=== PATIENT | female | born 1935 | race Caucasian/White ===

== ENCOUNTER 2017-08-25 15:00 | Inpatient (IN) | payer MEDICARE ==
[~2017-08-25] VITALS: Ht 160 cm; Wt 56.0 kg
[~2017-08-25 15:00] MED LIST: AMLO5TAB16 PO; CARV-50 PO; CLON0.5T4 PO; FLUO40CA10 PO; FURO-150 PO; OLAN2.5T28 PO; OLAN5TAB26 PO; PANT40TA4 PO
[2017-08-25] MEDS ORDERED: ipratropium/albuterol 3ml nebule NEB ONE (15:25)
[2017-08-25 15:53] LABS: BASOPHILS % (AUTO) 0.2 % (0-1); EOSINOPHILS # (AUTO) 0.1 X10'3 (0-0.9); EOSINOPHILS % (AUTO) 1.6 % (0-6); HEMATOCRIT 34.4 % (35.0-45.0); HEMOGLOBIN 11.4 g/dl (12.0-16.0); LYMPHOCYTES # (AUTO) 1.3 X10'3 (1.1-4.8); LYMPHOCYTES % (AUTO) 16.2 % (21-51); MEAN CORPUSCULAR HEMOGLOBIN 24.3 PG (27.0-31.0); MEAN CORPUSCULAR HGB CONC 33.2 % (33.0-36.5); MEAN CORPUSCULAR VOLUME 73.3 FL (78-98); MEAN PLATELET VOLUME 7.3 FL (7.4-10.4); MONOCYTES # (AUTO) 0.4 X10'3 (0-0.9); NEUTROPHILS # (AUTO) 6.1 X10'3 (1.8-7.7); PLATELET COUNT 230 X10'3 (140-440); RED BLOOD COUNT 4.69 X10'6 (4.20-5.60); RED CELL DISTRIBUTION WIDTH 17.2 % (11.5-14.5); WHITE BLOOD COUNT 7.9 X10'3 (4.5-11.0)
[2017-08-25 16:20] LABS: ALANINE AMINOTRANSFERASE 14 U/L (12-78); ALBUMIN 3.6 G/DL (3.4-5.0); ALBUMIN/GLOBULIN RATIO 0.9 (1.1-1.5); ALKALINE PHOSPHATASE 86 IU/L (46-116); ANION GAP 10 (8-16); ASPARTATE AMINO TRANSFERASE 18 U/L (10-37); BILIRUBIN,TOTAL 0.4 MG/DL (0.1-1.0); BLOOD UREA NITROGEN 24 MG/DL (7-18); CALCIUM 9.5 MG/DL (8.5-10.1); CHLORIDE 106 MMOL/L (99-107); GLUCOSE 127 MG/DL (70-104); POTASSIUM 3.3 MMOL/L (3.5-5.1); SODIUM 145 MMOL/L (135-145); TOTAL PROTEIN 7.7 G/DL (6.4-8.2); eGFR 53 ML/MIN
[2017-08-25] MEDS ORDERED: potassium Cl 20 mEq SR tablet PO STA (17:12)
[2017-08-25] MEDS ORDERED: AMLO5TAB PO (17:20)
[2017-08-25] MEDS ORDERED: AZIT-55 PO (17:20)
[2017-08-25] MEDS ORDERED: FURO-150 PO (17:20)
[2017-08-25] MEDS ORDERED: ALBU8HFA PO (17:20)
[2017-08-25] MEDS ORDERED: CLON0.5T23 PO (17:20)
[2017-08-25] MEDS ORDERED: CARV-49 PO (17:20)
[2017-08-25] MEDS ORDERED: OLAN2.5T28 PO (17:20)
[2017-08-25] MEDS ORDERED: GUAI600T45 PO (17:20)
[2017-08-25] MEDS ORDERED: FLUO20CA39 PO (17:20)
[2017-08-25] MEDS ORDERED: temazepam 15mg capsule PO PRN (21:00)
[2017-08-25] MEDS ORDERED: non-formulary drug (Clonazepam 1 TAB) PO PRN (21:10)
[2017-08-25] MEDS ORDERED: guaiFENesin ER 600mg tablet PO PRN (21:10)
[2017-08-25] MEDS ORDERED: HYDROmorphone 1 mg/ml syringe IV PRN ×2 (21:15)
[2017-08-25] MEDS ORDERED: bisacodyl 10mg suppository rectal RC PRN (21:15)
[2017-08-25] MEDS ORDERED: acetaminophen 650mg rectal suppository RC PRN (21:15)
[2017-08-25] MEDS ORDERED: ondansetron/PF 4mg/2ml inj IV PRN (21:15)
[2017-08-25] MEDS ORDERED: magnesium hydroxide 30ml (MOM) UD suspension PO PRN (21:15)
[2017-08-25] MEDS ORDERED: diphenhydrAMINE 25mg capsule PO PRN (21:15)
[2017-08-25] MEDS ORDERED: potassium Cl 20 mEq SR tablet PO PRN ×2 (21:15)
[2017-08-25] MEDS ORDERED: HYDROcodone/acetaminophen 10/325mg tab PO PRN (21:15)
[2017-08-25] MEDS ORDERED: mag hydrox/Alum hydrox/simeth 30ml oral suspension PO PRN (21:15)
[2017-08-25] MEDS ORDERED: acetaminophen 325mg tablet PO PRN ×2 (21:15)
[2017-08-25] MEDS ORDERED: morphine 2 MG/ML inj. syringe IV PRN ×2 (21:15)
[2017-08-25] MEDS ORDERED: HYDROcodone/acetaminophen 5mg/325mg tablet PO PRN (21:15)
[2017-08-25] MEDS ORDERED: potassium Cl 40MEQ/NS 500ml 500 ML IV PRN ×2 (21:15)
[2017-08-25] MEDS ORDERED: diphenhydrAMINE 50 mg/ml inj IV PRN (21:15)
[2017-08-25 22:04] LABS: HEMOGLOBIN A1C 6.1 % (4.5-6.2)
[2017-08-25 22:14] LABS: LIPASE 123 U/L (73-393); MAGNESIUM 1.6 MG/DL (1.5-2.4); PHOSPHORUS 3.4 MG/DL (2.3-4.5)
[2017-08-25] MEDS: azithromycin 250mg tablet PO SCH (22:42)
[2017-08-25] MEDS: normal saline 1000ml 1,000 ML IV SCH (22:42)
[2017-08-25] MEDS: heparin, porcine 5000 units/ml vial SQ SCH (23:11)
[2017-08-25 23:30] VITALS: BP 183/75
[2017-08-26 04:04] LABS: BASOPHILS # (AUTO) 0.1 X10'3 (0-0.2); BASOPHILS % (AUTO) 1.1 % (0-1); EOSINOPHILS % (AUTO) 0.8 % (0-6); HEMATOCRIT 30.6 % (35.0-45.0); HEMOGLOBIN 10.2 g/dl (12.0-16.0); LYMPHOCYTES # (AUTO) 2.9 X10'3 (1.1-4.8); LYMPHOCYTES % (AUTO) 46.6 % (21-51); MEAN CORPUSCULAR HEMOGLOBIN 24.6 PG (27.0-31.0); MEAN CORPUSCULAR HGB CONC 33.4 % (33.0-36.5); MEAN CORPUSCULAR VOLUME 73.6 FL (78-98); MEAN PLATELET VOLUME 8.1 FL (7.4-10.4); MONOCYTES # (AUTO) 0.5 X10'3 (0-0.9); MONOCYTES % (AUTO) 8.2 % (2-12); NEUTROPHILS # (AUTO) 2.7 X10'3 (1.8-7.7); NEUTROPHILS % (AUTO) 43.3 % (42-75); PLATELET COUNT 196 X10'3 (140-440); RED BLOOD COUNT 4.16 X10'6 (4.20-5.60); WHITE BLOOD COUNT 6.2 X10'3 (4.5-11.0)
[2017-08-26 04:07] LABS: ALANINE AMINOTRANSFERASE 6 U/L (12-78); ALBUMIN 3.2 G/DL (3.4-5.0); ALBUMIN/GLOBULIN RATIO 0.9 (1.1-1.5); ALKALINE PHOSPHATASE 76 IU/L (46-116); ANION GAP 4 (8-16); ASPARTATE AMINO TRANSFERASE 16 U/L (10-37); BILIRUBIN,TOTAL 0.4 MG/DL (0.1-1.0); BLOOD UREA NITROGEN 25 MG/DL (7-18); BUN/CREATININE RATIO 31.3 (6.6-38.0); CALCIUM 8.7 MG/DL (8.5-10.1); CHLORIDE 108 MMOL/L (99-107); GLUCOSE 98 MG/DL (70-104); POTASSIUM 3.8 MMOL/L (3.5-5.1); SODIUM 142 MMOL/L (135-145); TOTAL CARBON DIOXIDE 29.7 MMOL/L (24-32); TOTAL PROTEIN 6.9 G/DL (6.4-8.2); eGFR 69 ML/MIN
[2017-08-26] MEDS: K and/or MAG REPLACEMENT MC SCH (08:00)
[2017-08-26] MEDS ORDERED: amLODIPine 5mg tablet PO SCH (08:00)
[2017-08-26] MEDS ORDERED: OLANZapine 2.5MG tablet PO SCH (08:00)
[2017-08-26] MEDS ORDERED: carVEDilol 12.5mg tablet PO SCH (08:00)
[2017-08-26] MEDS: amLODIPine 5mg tablet PO SCH (08:00)
[2017-08-26] MEDS ORDERED: non-formulary drug (Fluoxetine HCl (Prozac) 1 CAP) PO SCH (08:00)
[2017-08-26] MEDS: CefTRIAXone/D5W-Rocephin 1gm 50 ML IV SCH (09:04)
[2017-08-26] MEDS: docusate sod 100mg capsule PO SCH ×2 (09:04→20:17)
[2017-08-26] MEDS: clonazePAM 0.5mg tablet PO SCH ×3 (09:04→20:17)
[2017-08-26] MEDS: carvedilol 6.25mg tablet PO SCH ×2 (09:04→20:17)
[2017-08-26] MEDS: FLUoxetine 20mg capsule PO SCH (09:05)
[2017-08-26] MEDS: pantoprazole 40mg Tablet.DR PO SCH (09:05)
[2017-08-26] MEDS: aspirin 81mg tab.chew PO SCH (09:06)
[2017-08-26] MEDS: OLANZapine 2.5MG tablet PO SCH ×2 (09:06→20:17)
[2017-08-26] MEDS: azithromycin 250mg tablet PO SCH (09:06)
[2017-08-26 09:21] VITALS: BP 152/82
[2017-08-26] MEDS: heparin, porcine 5000 units/ml vial SQ SCH ×2 (09:21→15:39)
[2017-08-26 11:45] LABS: CLARITY,URINE Turbid (Clear); COLOR,URINE Yellow (Yellow); GLUCOSE, URINE Negative (Neg); KETONES,URINE Trace mg/dl (Neg); LEUKOCYTE ESTERASE ,URINE Negative (Neg); NITRITES, URINE Negative (Neg); OCCULT BLOOD,URINE Negative (Neg); PROTEIN,URINE Negative (Neg)
[2017-08-26 11:48] LABS: UA COLLECTION TYPE NON-SPECIFIED
[2017-08-26 12:17] LABS: AMORPHOUS PHOSPHATES 4+
[2017-08-26 12:22] LABS: MUCUS STRANDS MODERATE /LPF (Neg); SQUAMOUS EPITHELIAL CELL,UR MODERATE /LPF (FEW)
[2017-08-26 12:24] LABS: BACTERIA,URINE FEW /HPF (Neg); RBC,URINE 0-2 /HPF (0-2); WBC,URINE 0-4 /HPF (0-4)
[2017-08-26 12:45] VITALS: BP 104/53
[2017-08-26] MEDS ORDERED: metoprolol tartrate 1mg/ml inj IV PRN (15:55)
[2017-08-26] MEDS ORDERED: regadenoson 0.4mg/5ml syringe IV PRN (15:55)
[2017-08-26] MEDS ORDERED: aminophylline 250mg/10ml inj. IV PRN (15:55)
[2017-08-26] MEDS ORDERED: nitroGLYCERIN 0.4mg SUBLingual tab SL PRN (15:55)
[2017-08-26] MEDS ORDERED: morphine 5 MG/ML injection IV PRN ×2 (16:59)
[2017-08-26 20:00] VITALS: BP 117/66
[2017-08-26] MEDS ORDERED: non-formulary drug (Olanzapine 1 TAB) PO SCH (21:00)
[2017-08-27] VITALS: BP 105/51
[2017-08-27] MEDS ORDERED: methylPREDNISolone sod succ 125mg/2ml vial IV ONE ×2 (00:35)
[2017-08-27] MEDS: heparin, porcine 5000 units/ml vial SQ SCH ×3 (01:17→16:14)
[2017-08-27] MEDS: ipratropium/albuterol 3ml nebule NEB SCH ×2 (02:15→07:00)
[2017-08-27 06:19] LABS: BASOPHILS % (AUTO) 0.2 % (0-1); EOSINOPHILS # (AUTO) 0.1 X10'3 (0-0.9); EOSINOPHILS % (AUTO) 1.3 % (0-6); HEMATOCRIT 29.1 % (35.0-45.0); HEMOGLOBIN 9.8 g/dl (12.0-16.0); LYMPHOCYTES # (AUTO) 1.1 X10'3 (1.1-4.8); MEAN CORPUSCULAR HEMOGLOBIN 24.6 PG (27.0-31.0); MEAN CORPUSCULAR HGB CONC 33.8 % (33.0-36.5); MEAN CORPUSCULAR VOLUME 72.8 FL (78-98); MEAN PLATELET VOLUME 7.6 FL (7.4-10.4); MONOCYTES # (AUTO) 0.1 X10'3 (0-0.9); MONOCYTES % (AUTO) 2.8 % (2-12); NEUTROPHILS # (AUTO) 2.5 X10'3 (1.8-7.7); NEUTROPHILS % (AUTO) 65.7 % (42-75); PLATELET COUNT 189 X10'3 (140-440); RED CELL DISTRIBUTION WIDTH 17.7 % (11.5-14.5); WHITE BLOOD COUNT 3.8 X10'3 (4.5-11.0)
[2017-08-27 06:53] LABS: ALANINE AMINOTRANSFERASE 16 U/L (12-78); ALBUMIN/GLOBULIN RATIO 0.8 (1.1-1.5); ALKALINE PHOSPHATASE 69 IU/L (46-116); ANION GAP 6 (8-16); ASPARTATE AMINO TRANSFERASE 16 U/L (10-37); BILIRUBIN,TOTAL 0.2 MG/DL (0.1-1.0); BLOOD UREA NITROGEN 30 MG/DL (7-18); CALCIUM 8.9 MG/DL (8.5-10.1); CHLORIDE 109 MMOL/L (99-107); GLUCOSE 123 MG/DL (70-104); POTASSIUM 4.7 MMOL/L (3.5-5.1); SODIUM 142 MMOL/L (135-145); TOTAL CARBON DIOXIDE 27.3 MMOL/L (24-32); TOTAL PROTEIN 6.8 G/DL (6.4-8.2); eGFR 53 ML/MIN
[2017-08-27 07:18] VITALS: BP 127/74
[2017-08-27] MEDS ORDERED: methylPREDNISolone sod succ 125mg/2ml vial IV SCH (08:00)
[2017-08-27] MEDS: K and/or MAG REPLACEMENT MC SCH (08:00)
[2017-08-27] MEDS ORDERED: ipratropium/albuterol 3ml nebule NEB PRN (08:35)
[2017-08-27] MEDS: FLUoxetine 20mg capsule PO SCH (08:37)
[2017-08-27] MEDS: clonazePAM 0.5mg tablet PO SCH ×2 (08:37→13:00)
[2017-08-27] MEDS: carvedilol 6.25mg tablet PO SCH ×2 (08:37→22:01)
[2017-08-27] MEDS: CefTRIAXone/D5W-Rocephin 1gm 50 ML IV SCH (10:44)
[2017-08-27] MEDS: methylPREDNISolone sod succ 125mg/2ml vial IV SCH ×2 (10:44→13:00)
[2017-08-27] MEDS: docusate sod 100mg capsule PO SCH ×2 (10:47→22:01)
[2017-08-27] MEDS: pantoprazole 40mg Tablet.DR PO SCH (10:47)
[2017-08-27] MEDS: amLODIPine 5mg tablet PO SCH (10:47)
[2017-08-27] MEDS: azithromycin 250mg tablet PO SCH (10:48)
[2017-08-27] MEDS: aspirin 81mg tab.chew PO SCH (10:48)
[2017-08-27] MEDS: OLANZapine 2.5MG tablet PO SCH ×2 (10:48→22:01)
[2017-08-27 11:00] VITALS: BP 139/80
[2017-08-27] MEDS ORDERED: aminophylline 250mg/10ml inj. IV PRN (13:40)
[2017-08-27] MEDS ORDERED: nitroGLYCERIN 0.4mg SUBLingual tab SL PRN (13:40)
[2017-08-27] MEDS ORDERED: regadenoson 0.4mg/5ml syringe IV PRN (13:40)
[2017-08-27] MEDS ORDERED: metoprolol tartrate 1mg/ml inj IV PRN (13:40)
[2017-08-27 20:00] VITALS: BP 127/70
[2017-08-27] MEDS: normal saline 1000ml 1,000 ML IV SCH (21:11)
[2017-08-28] VITALS (10 sets, daily range): BP systolic 93–148; BP diastolic 44–89
[2017-08-28] MEDS: heparin, porcine 5000 units/ml vial SQ SCH ×3 (00:23→16:00)
[2017-08-28 05:49] LABS: BASOPHILS % (AUTO) 0.4 % (0-1); EOSINOPHILS # (AUTO) 0.1 X10'3 (0-0.9); EOSINOPHILS % (AUTO) 1.2 % (0-6); HEMOGLOBIN 9.8 g/dl (12.0-16.0); LYMPHOCYTES # (AUTO) 1.4 X10'3 (1.1-4.8); LYMPHOCYTES % (AUTO) 20.3 % (21-51); MEAN CORPUSCULAR HEMOGLOBIN 24.3 PG (27.0-31.0); MEAN CORPUSCULAR HGB CONC 32.6 % (33.0-36.5); MEAN CORPUSCULAR VOLUME 74.8 FL (78-98); MONOCYTES # (AUTO) 0.5 X10'3 (0-0.9); MONOCYTES % (AUTO) 7.3 % (2-12); NEUTROPHILS % (AUTO) 70.8 % (42-75); PLATELET COUNT 221 X10'3 (140-440); RED BLOOD COUNT 4.02 X10'6 (4.20-5.60); RED CELL DISTRIBUTION WIDTH 17.7 % (11.5-14.5); WHITE BLOOD COUNT 7.1 X10'3 (4.5-11.0)
[2017-08-28 06:24] LABS: ALANINE AMINOTRANSFERASE 10 U/L (12-78); ALBUMIN 3.1 G/DL (3.4-5.0); ALBUMIN/GLOBULIN RATIO 0.8 (1.1-1.5); ALKALINE PHOSPHATASE 73 IU/L (46-116); ANION GAP 6 (8-16); ASPARTATE AMINO TRANSFERASE 13 U/L (10-37); BILIRUBIN,TOTAL 0.2 MG/DL (0.1-1.0); BLOOD UREA NITROGEN 27 MG/DL (7-18); BUN/CREATININE RATIO 33.8 (6.6-38.0); CALCIUM 8.8 MG/DL (8.5-10.1); CHLORIDE 109 MMOL/L (99-107); GLUCOSE 106 MG/DL (70-104); SODIUM 142 MMOL/L (135-145); TOTAL CARBON DIOXIDE 26.7 MMOL/L (24-32); TOTAL PROTEIN 6.9 G/DL (6.4-8.2); eGFR 69 ML/MIN
[2017-08-28] MEDS: K and/or MAG REPLACEMENT MC SCH (08:00)
[2017-08-28] MEDS ORDERED: clonazePAM 0.5mg tablet PO ONE (09:00)
[2017-08-28] MEDS: normal saline 1000ml 1,000 ML IV SCH (09:01)
[2017-08-28] MEDS: CefTRIAXone/D5W-Rocephin 1gm 50 ML IV SCH (09:02)
[2017-08-28] MEDS: azithromycin 250mg tablet PO SCH (09:08)
[2017-08-28] MEDS: docusate sod 100mg capsule PO SCH ×2 (09:08→20:38)
[2017-08-28] MEDS: FLUoxetine 20mg capsule PO SCH (09:08)
[2017-08-28] MEDS: pantoprazole 40mg Tablet.DR PO SCH (09:09)
[2017-08-28] MEDS: OLANZapine 2.5MG tablet PO SCH ×2 (09:09→20:39)
[2017-08-28] MEDS: carvedilol 6.25mg tablet PO SCH ×2 (09:09→20:39)
[2017-08-28] MEDS ORDERED: aminophylline inj. 10 ML IV ONE (10:20)
[2017-08-28] MEDS ORDERED: regadenoson 0.4mg/5ml syringe IV ONE (10:20)
[2017-08-28] MEDS: amLODIPine 5mg tablet PO SCH (12:21)
[2017-08-28] MEDS: aspirin 81mg tab.chew PO SCH (12:21)
[2017-08-28] MEDS ORDERED: clonazePAM 0.5mg tablet PO PRN ×2 (13:00)
[2017-08-28] MEDS ORDERED: FURO-150 PO (13:34)
[2017-08-28] MEDS ORDERED: ALBU8HFA PO (13:34)
[2017-08-28] MEDS ORDERED: CLON0.5T23 PO (13:34)
[2017-08-28] MEDS ORDERED: AZIT-55 PO (13:34)
[2017-08-28] MEDS ORDERED: ASPI-1265 PO (13:34)
[2017-08-28] MEDS ORDERED: OLAN2.5T28 PO (13:34)
[2017-08-28] MEDS ORDERED: PANT40TA4 PO (13:34)
[2017-08-28] MEDS ORDERED: CARV-49 PO (13:34)
[2017-08-28] MEDS ORDERED: AMLO5TAB PO (13:34)
[2017-08-28] MEDS: lactobacillus rhamnosus 10,000 MMU CELLS/CAPSULE PO SCH (17:59)
[2017-08-29] VITALS: BP 133/51
[2017-08-29] MEDS: heparin, porcine 5000 units/ml vial SQ SCH ×2 (00:41→10:08)
[2017-08-29 05:59] LABS: BASOPHILS % (AUTO) 0.4 % (0-1); EOSINOPHILS # (AUTO) 0.1 X10'3 (0-0.9); EOSINOPHILS % (AUTO) 1.5 % (0-6); HEMATOCRIT 28.6 % (35.0-45.0); HEMOGLOBIN 9.4 g/dl (12.0-16.0); LYMPHOCYTES # (AUTO) 2.7 X10'3 (1.1-4.8); LYMPHOCYTES % (AUTO) 45.7 % (21-51); MEAN CORPUSCULAR HEMOGLOBIN 24.4 PG (27.0-31.0); MEAN CORPUSCULAR VOLUME 74.1 FL (78-98); MEAN PLATELET VOLUME 7.7 FL (7.4-10.4); MONOCYTES # (AUTO) 0.4 X10'3 (0-0.9); MONOCYTES % (AUTO) 6.4 % (2-12); NEUTROPHILS # (AUTO) 2.7 X10'3 (1.8-7.7); PLATELET COUNT 213 X10'3 (140-440); RED BLOOD COUNT 3.87 X10'6 (4.20-5.60); RED CELL DISTRIBUTION WIDTH 17.9 % (11.5-14.5)
[2017-08-29 06:30] LABS: ALANINE AMINOTRANSFERASE 10 U/L (12-78); ALBUMIN 2.8 G/DL (3.4-5.0); ALBUMIN/GLOBULIN RATIO 0.8 (1.1-1.5); ALKALINE PHOSPHATASE 62 IU/L (46-116); ANION GAP 7 (8-16); ASPARTATE AMINO TRANSFERASE 13 U/L (10-37); BILIRUBIN,TOTAL 0.2 MG/DL (0.1-1.0); BLOOD UREA NITROGEN 32 MG/DL (7-18); BUN/CREATININE RATIO 35.6 (6.6-38.0); CALCIUM 8.5 MG/DL (8.5-10.1); CHLORIDE 110 MMOL/L (99-107); SODIUM 145 MMOL/L (135-145); TOTAL CARBON DIOXIDE 27.6 MMOL/L (24-32); TOTAL PROTEIN 6.3 G/DL (6.4-8.2); eGFR 60 ML/MIN
[2017-08-29 06:35] LABS: GLUCOSE 86 MG/DL (70-104)
[2017-08-29 07:41] VITALS: BP 152/74
[2017-08-29] MEDS: K and/or MAG REPLACEMENT MC SCH (08:00)
[2017-08-29] MEDS: docusate sod 100mg capsule PO SCH (10:06)
[2017-08-29] MEDS: lactobacillus rhamnosus 10,000 MMU CELLS/CAPSULE PO SCH (10:06)
[2017-08-29] MEDS: carvedilol 6.25mg tablet PO SCH (10:06)
[2017-08-29] MEDS: OLANZapine 2.5MG tablet PO SCH (10:07)
[2017-08-29] MEDS: azithromycin 250mg tablet PO SCH (10:07)
[2017-08-29] MEDS: amLODIPine 5mg tablet PO SCH (10:07)
[2017-08-29] MEDS: pantoprazole 40mg Tablet.DR PO SCH (10:07)
[2017-08-29] MEDS: FLUoxetine 20mg capsule PO SCH (10:08)
[2017-08-29] MEDS: aspirin 81mg tab.chew PO SCH (10:08)
[2017-08-29 12:23] VITALS: BP 116/59
== END 2017-08-29 13:40 | disposition home or self-care (01) | DRG 683 ==
LOC: ER 15:00 → ED HOLD 21:11 → EDBEDREQ 22:09 → SUR 3N 22:55
PROVIDERS: ADMIT Family Medicine; ATTEND Nurse Practitioner Family
DX: N17.9 Acute kidney failure, unspecified (principal); J44.1 Chronic obstructive pulmonary disease with (acute) exacerbation; I11.0 Hypertensive heart disease with heart failure; I50.20 Unspecified systolic (congestive) heart failure; J44.0 Chronic obstructive pulmonary disease with (acute) lower respiratory infection; T17.990A Other foreign object in respiratory tract, part unspecified in causing asphyxiation, initial encounter; R45.851 Suicidal ideations; I25.119 Atherosclerotic heart disease of native coronary artery with unspecified angina pectoris; F03.90 Unspecified dementia, unspecified severity, without behavioral disturbance, psychotic disturbance, mood disturbance, and anxiety; J20.9 Acute bronchitis, unspecified; E87.6 Hypokalemia; K21.9 Gastro-esophageal reflux disease without esophagitis; M54.89 Other dorsalgia; F29 Unspecified psychosis not due to a substance or known physiological condition; F41.9 Anxiety disorder, unspecified; X58.XXXA Exposure to other specified factors, initial encounter; F31.9 Bipolar disorder, unspecified; Z91.14 Patient's other noncompliance with medication regimen; Z95.1 Presence of aortocoronary bypass graft; Z79.899 Other long term (current) drug therapy; Z79.01 Long term (current) use of anticoagulants; Y93.89 Activity, other specified; Y99.8 Other external cause status; Y92.89 Other specified places as the place of occurrence of the external cause
CPT/HCPCS: 36415; 71045; 72100; 72131; 72192; 72220; 78452; 80053; 81001; 83036; 83690; 83735; 83880; 84100; 84443; 84484; 85025; 87070; 93005; 93017; 93306; 94640; 94760; 99285; A9500; J0280; J0696; J1644; J2930; J7030

== ENCOUNTER 2017-11-16 17:23 | Emergency (ER) | payer MEDICARE ==
[~2017-11-16] VITALS: Ht 5451.6 cm; Wt 54.0 kg
[~2017-11-16 17:23] MED LIST changes: +ALBU8HFA PO; +AMLO5TAB PO; +ASPI-1265 PO; +AZIT-55 PO; +CARV-49 PO; -CARV-50 PO; +CLON0.5T23 PO; -CLON0.5T4 PO; -FLUO40CA10 PO; -OLAN5TAB26 PO
[2017-11-16 18:02] LABS: BASOPHILS % (AUTO) 0.4 % (0-1); EOSINOPHILS # (AUTO) 0.2 X10'3 (0-0.9); EOSINOPHILS % (AUTO) 2.4 % (0-6); HEMATOCRIT 31.9 % (35.0-45.0); HEMOGLOBIN 10.6 g/dl (12.0-16.0); LYMPHOCYTES # (AUTO) 2.5 X10'3 (1.1-4.8); LYMPHOCYTES % (AUTO) 35.1 % (21-51); MEAN CORPUSCULAR HEMOGLOBIN 24.2 PG (27.0-31.0); MEAN CORPUSCULAR HGB CONC 33.1 % (33.0-36.5); MEAN PLATELET VOLUME 7.1 FL (7.4-10.4); MONOCYTES # (AUTO) 0.6 X10'3 (0-0.9); MONOCYTES % (AUTO) 8.1 % (2-12); NEUTROPHILS # (AUTO) 3.9 X10'3 (1.8-7.7); PLATELET COUNT 280 X10'3 (140-440); RED BLOOD COUNT 4.37 X10'6 (4.20-5.60); RED CELL DISTRIBUTION WIDTH 19.5 % (11.5-14.5); WHITE BLOOD COUNT 7.2 X10'3 (4.5-11.0)
[2017-11-16 18:26] LABS: ALANINE AMINOTRANSFERASE 16 U/L (12-78); ALBUMIN 3.6 G/DL (3.4-5.0); ALBUMIN/GLOBULIN RATIO 0.9 (1.1-1.5); ALKALINE PHOSPHATASE 71 IU/L (46-116); ANION GAP 8 (8-16); ASPARTATE AMINO TRANSFERASE 16 U/L (10-37); BILIRUBIN,TOTAL 0.3 MG/DL (0.1-1.0); BLOOD UREA NITROGEN 28 MG/DL (7-18); BUN/CREATININE RATIO 29.8 (6.6-38.0); CALCIUM 9.4 MG/DL (8.5-10.1); CHLORIDE 104 MMOL/L (99-107); CREATININE 0.94 MG/DL (0.40-0.90); ETHANOL < 0.010 GM/DL (0.0-0.010); SODIUM 141 MMOL/L (135-145); TOTAL CARBON DIOXIDE 28.6 MMOL/L (24-32); TOTAL PROTEIN 7.7 G/DL (6.4-8.2); eGFR 57 ML/MIN
[2017-11-16 18:27] LABS: ACETAMINOPHEN < 2.0 UG/ML (10-30); GLUCOSE 114 MG/DL (70-104)
[2017-11-16 20:16] LABS: CLARITY,URINE CLEAR (Clear); COLOR,URINE YELLOW (Yellow); GLUCOSE, URINE NEGATIVE (Neg); KETONES,URINE NEGATIVE (Neg); LEUKOCYTE ESTERASE ,URINE NEGATIVE (Neg); NITRITES, URINE NEGATIVE (Neg); OCCULT BLOOD,URINE NEGATIVE (Neg); PROTEIN,URINE NEGATIVE (Neg); UROBILINOGEN,URINE 0.2 E.U/dL (0.2-1.0)
[2017-11-16 20:17] LABS: UA COLLECTION TYPE CLN CATCH MIDSTREAM
[2017-11-16] MEDS ORDERED: quetiapine 100mg tablet PO ONE (20:20)
[2017-11-16 20:21] LABS: URINE AMPHETAMINE SCREEN NEGATIVE (Neg); URINE BARBITUATE SCREEN NEGATIVE (Neg); URINE BENZODIAZEPINES SCREEN NEGATIVE (Neg); URINE CANNABINOID SCREEN NEGATIVE (Neg); URINE COCAINE SCREEN NEGATIVE (Neg); URINE METHADONE SCREEN NEGATIVE (Neg); URINE OPIATE SCREEN NEGATIVE (Neg); URINE PHENCYCLIDINE SCREEN NEGATIVE (Neg)
[2017-11-16] MEDS ORDERED: QUEtiapine 25mg tablet PO SCH (21:00)
[2017-11-17 12:45] VITALS: BP 134/54
== END 2017-11-17 12:30 | disposition home or self-care (01) ==
LOC: ER 17:23
DX: F41.9 Anxiety disorder, unspecified (principal); F31.9 Bipolar disorder, unspecified; F03.90 Unspecified dementia, unspecified severity, without behavioral disturbance, psychotic disturbance, mood disturbance, and anxiety; R45.851 Suicidal ideations; I25.10 Atherosclerotic heart disease of native coronary artery without angina pectoris; I10 Essential (primary) hypertension; K21.9 Gastro-esophageal reflux disease without esophagitis; Z95.1 Presence of aortocoronary bypass graft; Z79.82 Long term (current) use of aspirin; Z79.899 Other long term (current) drug therapy
CPT/HCPCS: 36415; 80053; 80305; 80320; 80329; 81003; 84443; 85025; 99284

== ENCOUNTER 2017-11-17 10:30 | Inpatient (IN) | payer MEDICARE ==
[~2017-11-17] VITALS: Ht 162.6 cm; Wt 54.6 kg
[2017-11-17 11:24] VITALS: BP 134/54
[2017-11-17] MEDS ORDERED: mag hydrox/Alum hydrox/simeth 30ml oral suspension PO PRN (12:15)
[2017-11-17] MEDS ORDERED: acetaminophen 325mg tablet PO PRN (12:15)
[2017-11-17] MEDS ORDERED: magnesium hydroxide 30ml (MOM) UD suspension PO PRN ×2 (12:15)
[2017-11-17 13:35] VITALS: BP 126/74
[2017-11-17] MEDS ORDERED: furosemide 20MG tablet PO ONE (14:55)
[2017-11-17 19:28] VITALS: BP 112/59
[2017-11-17] MEDS: clonazePAM 0.5mg tablet PO SCH (21:01)
[2017-11-17] MEDS: OLANZapine 2.5MG tablet PO SCH (21:01)
[2017-11-17] MEDS: carVEDilol 12.5mg tablet PO SCH (21:02)
[2017-11-18] MEDS: pantoprazole 40mg Tablet.DR PO SCH (07:04)
[2017-11-18 07:26] LABS: HEMOGLOBIN A1C 5.9 % (4.5-6.2)
[2017-11-18 07:27] LABS: CHOL/HDL RATIO 3.9 (0.00-4.99); CHOLESTEROL 220 MG/DL (0-200); HDL CHOLESTEROL 57 MG/DL (35-60); LDL CHOLESTEROL 139 MG/DL (50-100); TRIGLYCERIDES 93 MG/DL (20-135)
[2017-11-18 08:00] VITALS: BP 124/58
[2017-11-18] MEDS: FLUoxetine 20mg capsule PO SCH (08:37)
[2017-11-18] MEDS: carVEDilol 12.5mg tablet PO SCH ×2 (08:37→20:23)
[2017-11-18] MEDS: amLODIPine 5mg tablet PO SCH (08:37)
[2017-11-18] MEDS: OLANZapine 2.5MG tablet PO SCH ×2 (08:37→20:23)
[2017-11-18] MEDS: clonazePAM 0.5mg tablet PO SCH ×2 (08:37→20:23)
[2017-11-18 19:00] VITALS: BP 146/58
[2017-11-19] MEDS: pantoprazole 40mg Tablet.DR PO SCH (07:39)
[2017-11-19 08:00] VITALS: BP 125/65
[2017-11-19] MEDS: amLODIPine 5mg tablet PO SCH (08:15)
[2017-11-19] MEDS: clonazePAM 0.5mg tablet PO SCH ×2 (08:15→20:08)
[2017-11-19] MEDS: carVEDilol 12.5mg tablet PO SCH ×2 (08:15→20:09)
[2017-11-19] MEDS: FLUoxetine 20mg capsule PO SCH (08:15)
[2017-11-19] MEDS: OLANZapine 2.5MG tablet PO SCH ×2 (08:15→20:08)
[2017-11-19] MEDS: Protein Shake (high protein) 240ml (8oz) cup PO SCH ×3 (13:00→18:00)
[2017-11-19] MEDS: nystatin 500,000 unit/5ML UD oral suspension PO SCH ×2 (15:58→20:09)
[2017-11-19 19:26] VITALS: BP 141/56
[2017-11-19 19:29] VITALS: BP 125/56
[2017-11-20] MEDS: pantoprazole 40mg Tablet.DR PO SCH (07:10)
[2017-11-20 08:00] VITALS: BP_SYST 109; BP_SYST 111; BP_DIAS 61
[2017-11-20] MEDS: Protein Shake (high protein) 240ml (8oz) cup PO SCH ×3 (08:00→18:00)
[2017-11-20] MEDS: carVEDilol 12.5mg tablet PO SCH ×2 (08:19→20:28)
[2017-11-20] MEDS: clonazePAM 0.5mg tablet PO SCH ×2 (08:19→20:28)
[2017-11-20] MEDS: FLUoxetine 20mg capsule PO SCH (08:21)
[2017-11-20] MEDS: OLANZapine 2.5MG tablet PO SCH ×2 (08:21→20:28)
[2017-11-20] MEDS: amLODIPine 5mg tablet PO SCH (08:21)
[2017-11-20] MEDS: nystatin 500,000 unit/5ML UD oral suspension PO SCH ×3 (08:23→20:28)
[2017-11-20 19:00] VITALS: BP 134/59
[2017-11-21 08:00] VITALS: BP 127/61
[2017-11-21] MEDS: pantoprazole 40mg Tablet.DR PO SCH (08:00)
[2017-11-21] MEDS: Protein Shake (high protein) 240ml (8oz) cup PO SCH ×3 (08:00→18:00)
[2017-11-21] MEDS: nystatin 500,000 unit/5ML UD oral suspension PO SCH ×3 (08:03→21:08)
[2017-11-21] MEDS: amLODIPine 5mg tablet PO SCH (08:06)
[2017-11-21] MEDS: FLUoxetine 20mg capsule PO SCH (08:07)
[2017-11-21] MEDS: clonazePAM 0.5mg tablet PO SCH ×2 (08:08→21:08)
[2017-11-21] MEDS: carVEDilol 12.5mg tablet PO SCH ×2 (08:08→21:08)
[2017-11-21] MEDS: OLANZapine 2.5MG tablet PO SCH ×2 (08:09→21:08)
[2017-11-21 19:56] VITALS: BP 147/68
[2017-11-22 08:00] VITALS: BP 124/78
[2017-11-22] MEDS: Protein Shake (high protein) 240ml (8oz) cup PO SCH ×3 (08:00→18:00)
[2017-11-22] MEDS: nystatin 500,000 unit/5ML UD oral suspension PO SCH ×3 (08:00→20:36)
[2017-11-22] MEDS: clonazePAM 0.5mg tablet PO SCH ×2 (08:15→20:36)
[2017-11-22] MEDS: OLANZapine 2.5MG tablet PO SCH ×2 (08:16→20:36)
[2017-11-22] MEDS: FLUoxetine 20mg capsule PO SCH (08:16)
[2017-11-22] MEDS: pantoprazole 40mg Tablet.DR PO SCH (08:17)
[2017-11-22] MEDS: amLODIPine 5mg tablet PO SCH (08:17)
[2017-11-22] MEDS: carVEDilol 12.5mg tablet PO SCH ×2 (08:17→20:37)
[2017-11-22 19:00] VITALS: BP 99/55
[2017-11-23 08:00] VITALS: BP 147/82
[2017-11-23] MEDS: FLUoxetine 20mg capsule PO SCH (08:20)
[2017-11-23] MEDS: clonazePAM 0.5mg tablet PO SCH ×2 (08:21→20:38)
[2017-11-23] MEDS: amLODIPine 5mg tablet PO SCH (08:21)
[2017-11-23] MEDS: pantoprazole 40mg Tablet.DR PO SCH (08:21)
[2017-11-23] MEDS: OLANZapine 2.5MG tablet PO SCH ×2 (08:21→20:38)
[2017-11-23] MEDS: carVEDilol 12.5mg tablet PO SCH ×2 (08:22→20:38)
[2017-11-23] MEDS: nystatin 500,000 unit/5ML UD oral suspension PO SCH ×3 (08:23→20:38)
[2017-11-23] MEDS: Protein Shake (high protein) 240ml (8oz) cup PO SCH ×3 (08:25→18:00)
[2017-11-23 19:00] VITALS: BP 110/53
[2017-11-24] MEDS: pantoprazole 40mg Tablet.DR PO SCH (07:28)
[2017-11-24] MEDS: clonazePAM 0.5mg tablet PO SCH ×2 (07:30→21:16)
[2017-11-24] MEDS: OLANZapine 2.5MG tablet PO SCH ×2 (07:30→21:17)
[2017-11-24] MEDS: FLUoxetine 20mg capsule PO SCH (07:31)
[2017-11-24 08:00] VITALS: BP 125/63
[2017-11-24] MEDS: amLODIPine 5mg tablet PO SCH (08:09)
[2017-11-24] MEDS: carVEDilol 12.5mg tablet PO SCH ×2 (08:10→21:16)
[2017-11-24] MEDS: Protein Shake (high protein) 240ml (8oz) cup PO SCH ×3 (08:11→18:37)
[2017-11-24] MEDS: nystatin 500,000 unit/5ML UD oral suspension PO SCH ×3 (08:32→21:17)
[2017-11-24 19:44] VITALS: BP 122/58
[2017-11-25] MEDS: carVEDilol 12.5mg tablet PO SCH ×2 (07:42→22:19)
[2017-11-25] MEDS: pantoprazole 40mg Tablet.DR PO SCH (07:42)
[2017-11-25] MEDS: amLODIPine 5mg tablet PO SCH (07:42)
[2017-11-25] MEDS: clonazePAM 0.5mg tablet PO SCH ×2 (07:42→22:19)
[2017-11-25] MEDS: OLANZapine 2.5MG tablet PO SCH ×2 (07:42→22:19)
[2017-11-25] MEDS: FLUoxetine 20mg capsule PO SCH (07:42)
[2017-11-25] MEDS: nystatin 500,000 unit/5ML UD oral suspension PO SCH ×3 (07:42→22:19)
[2017-11-25 08:00] VITALS: BP 124/68
[2017-11-25] MEDS: Protein Shake (high protein) 240ml (8oz) cup PO SCH ×3 (08:00→18:00)
[2017-11-25 19:58] VITALS: BP 109/67
[2017-11-26] MEDS: clonazePAM 0.5mg tablet PO SCH ×2 (07:24→21:10)
[2017-11-26] MEDS: nystatin 500,000 unit/5ML UD oral suspension PO SCH ×3 (07:24→21:11)
[2017-11-26] MEDS: FLUoxetine 20mg capsule PO SCH (07:24)
[2017-11-26] MEDS: OLANZapine 2.5MG tablet PO SCH ×2 (07:24→21:10)
[2017-11-26] MEDS: pantoprazole 40mg Tablet.DR PO SCH (07:24)
[2017-11-26] MEDS: Protein Shake (high protein) 240ml (8oz) cup PO SCH ×3 (08:36→18:00)
[2017-11-26] MEDS: amLODIPine 5mg tablet PO SCH (08:36)
[2017-11-26] MEDS: carVEDilol 12.5mg tablet PO SCH ×2 (08:36→21:10)
[2017-11-26 08:38] VITALS: BP 116/81
[2017-11-26 19:12] VITALS: BP 125/68
[2017-11-27] MEDS: pantoprazole 40mg Tablet.DR PO SCH (07:20)
[2017-11-27] MEDS: Protein Shake (high protein) 240ml (8oz) cup PO SCH ×2 (08:00→13:24)
[2017-11-27] MEDS: carVEDilol 12.5mg tablet PO SCH (08:20)
[2017-11-27] MEDS: OLANZapine 2.5MG tablet PO SCH (08:21)
[2017-11-27] MEDS: amLODIPine 5mg tablet PO SCH (08:21)
[2017-11-27] MEDS: clonazePAM 0.5mg tablet PO SCH (08:21)
[2017-11-27] MEDS: FLUoxetine 20mg capsule PO SCH (08:22)
[2017-11-27] MEDS: nystatin 500,000 unit/5ML UD oral suspension PO SCH ×2 (08:22→13:24)
[2017-11-27 08:31] VITALS: BP 107/55
[2017-11-27] MEDS ORDERED: ASPI-1265 PO (13:03)
[2017-11-27] MEDS ORDERED: CLON0.5T4 PO (13:03)
[2017-11-27] MEDS ORDERED: FLUO20CA22 PO (13:03)
[2017-11-27] MEDS ORDERED: OLAN5TAB26 PO (13:03)
[2017-11-27] MEDS ORDERED: PANT40TA4 PO (13:03)
[2017-11-27] MEDS ORDERED: AMLO5TAB16 PO (13:03)
[2017-11-27] MEDS ORDERED: CARV-50 PO (13:03)
== END 2017-11-27 16:15 | disposition home or self-care (01) | DRG 880 ==
LOC: ADULT MH 10:30
PROVIDERS: ADMIT Psychiatry & Neurology Psychiatry; ATTEND Psychiatry & Neurology Psychiatry
DX: F41.8 Other specified anxiety disorders (principal); F03.90 Unspecified dementia, unspecified severity, without behavioral disturbance, psychotic disturbance, mood disturbance, and anxiety; R45.851 Suicidal ideations; I10 Essential (primary) hypertension; I25.10 Atherosclerotic heart disease of native coronary artery without angina pectoris; K21.9 Gastro-esophageal reflux disease without esophagitis; Z59.9 Problem related to housing and economic circumstances, unspecified; Z82.49 Family history of ischemic heart disease and other diseases of the circulatory system; Z91.19 Patient's noncompliance with other medical treatment and regimen; Z83.42 Family history of familial hypercholesterolemia; Z79.82 Long term (current) use of aspirin; Z79.899 Other long term (current) drug therapy
CPT/HCPCS: 36415; 80061; 83036; 87070

== ENCOUNTER 2018-06-27 02:46 | Emergency (ER) | payer MEDICARE ==
[~2018-06-27] VITALS: Ht 160 cm; Wt 54.0 kg
[~2018-06-27 02:46] MED LIST changes: -AMLO5TAB PO; -AZIT-55 PO; -CARV-49 PO; +CARV-50 PO; +CLON0.5T12 PO; -CLON0.5T23 PO; +FLUO20CA22 PO; -FURO-150 PO; -OLAN2.5T28 PO; +OLAN5TAB26 PO
[2018-06-27] MEDS ORDERED: OLANZapine 2.5MG tablet PO ONE (03:17)
[2018-06-27] MEDS ORDERED: OLANZapine 2.5MG tablet PO SCH ×2 (03:17→08:00)
[2018-06-27 04:12] LABS: BASOPHILS % (AUTO) 0.3 % (0-1); EOSINOPHILS % (AUTO) 0 % (0-6); HEMATOCRIT 39.3 % (35.0-45.0); HEMOGLOBIN 12.6 g/dl (12.0-16.0); LYMPHOCYTES # (AUTO) 4.4 X10'3 (1.1-4.8); LYMPHOCYTES % (AUTO) 27.3 % (21-51); MEAN CORPUSCULAR HEMOGLOBIN 24.9 PG (27.0-31.0); MEAN CORPUSCULAR HGB CONC 32.1 % (33.0-36.5); MEAN CORPUSCULAR VOLUME 77.5 FL (78-98); MEAN PLATELET VOLUME 6.5 FL (7.4-10.4); MONOCYTES % (AUTO) 6.3 % (2-12); NEUTROPHILS # (AUTO) 10.7 X10'3 (1.8-7.7); NEUTROPHILS % (AUTO) 66.1 % (42-75); PLATELET COUNT 562 X10'3 (140-440); RED BLOOD COUNT 5.08 X10'6 (4.20-5.60); RED CELL DISTRIBUTION WIDTH 18.5 % (11.5-14.5); WHITE BLOOD COUNT 16.2 X10'3 (4.5-11.0)
[2018-06-27] MEDS ORDERED: LORazepam 1 MG tablet PO ONE (04:25)
[2018-06-27 04:34] LABS: ALANINE AMINOTRANSFERASE 11 U/L (12-78); ALBUMIN 3.6 G/DL (3.4-5.0); ALBUMIN/GLOBULIN RATIO 0.8 (1.1-1.5); ALKALINE PHOSPHATASE 73 IU/L (46-116); ANION GAP 18 (8-16); ASPARTATE AMINO TRANSFERASE 17 U/L (10-37); BILIRUBIN,TOTAL 0.5 MG/DL (0.1-1.0); BLOOD UREA NITROGEN 19 MG/DL (7-18); BUN/CREATININE RATIO 12.5 (6.6-38.0); CALCIUM 9.4 MG/DL (8.5-10.1); CHLORIDE 97 MMOL/L (99-107); CREATININE 1.52 MG/DL (0.40-0.90); ETHANOL < 0.010 GM/DL (0.0-0.010); GLUCOSE 239 MG/DL (70-104); POTASSIUM 3.1 MMOL/L (3.5-5.1); SODIUM 142 MMOL/L (135-145); TOTAL CARBON DIOXIDE 27.5 MMOL/L (24-32); TOTAL PROTEIN 8.3 G/DL (6.4-8.2); eGFR 33 ML/MIN
[2018-06-27 04:35] LABS: URINE AMPHETAMINE SCREEN NEGATIVE (Neg); URINE BARBITUATE SCREEN NEGATIVE (Neg); URINE BENZODIAZEPINES SCREEN NEGATIVE (Neg); URINE CANNABINOID SCREEN NEGATIVE (Neg); URINE COCAINE SCREEN NEGATIVE (Neg); URINE METHADONE SCREEN NEGATIVE (Neg); URINE OPIATE SCREEN NEGATIVE (Neg); URINE PHENCYCLIDINE SCREEN NEGATIVE (Neg)
[2018-06-27 05:03] LABS: URINE HCG NEGATIVE (NEG)
[2018-06-27] MEDS ORDERED: CLON-528 PO (06:28)
[2018-06-27] MEDS ORDERED: LISI-600 PO (06:28)
[2018-06-27] MEDS ORDERED: potassium Cl 20 mEq SR tablet PO STA (12:04)
[2018-06-27 15:12] LABS: CLARITY,URINE CLEAR (Clear); COLOR,URINE STRAW (Yellow); GLUCOSE, URINE NEGATIVE (Neg); KETONES,URINE NEGATIVE (Neg); LEUKOCYTE ESTERASE ,URINE NEGATIVE (Neg); NITRITES, URINE NEGATIVE (Neg); OCCULT BLOOD,URINE NEGATIVE (Neg); PROTEIN,URINE NEGATIVE (Neg); UROBILINOGEN,URINE 0.2 E.U/dL (0.2-1.0)
[2018-06-27 15:13] LABS: UA COLLECTION TYPE NON-SPECIFIED
[2018-06-27] MEDS ORDERED: pantoprazole 40mg Tablet.DR PO ONE (15:58)
[2018-06-27] MEDS ORDERED: mag hydrox/Alum hydrox/simeth 30ml oral suspension PO ONE (16:00)
[2018-06-27 18:17] VITALS: BP 134/57
[2018-06-27] MEDS ORDERED: aspirin 81mg tab.chew PO ONE (19:35)
[2018-06-28] MEDS ORDERED: AMLO-94 PO (03:23)
[2018-06-28] MEDS ORDERED: ASPI-611 PO (03:24)
[2018-06-28] MEDS ORDERED: CARV-50 PO (03:25)
[2018-06-28] MEDS ORDERED: FLUO60TA PO (03:29)
[2018-06-28] MEDS ORDERED: OLAN5TAB3 PO (03:31)
[2018-06-28] MEDS ORDERED: PANT40TA4 PO (03:32)
[2018-06-28] MEDS ORDERED: ALB0.5UD IH ×2 (03:34)
[2018-06-28] MEDS ORDERED: CLON-528 PO (03:36)
[2018-06-28] MEDS ORDERED: LISI20TA PO (04:04)
[2018-06-28] MEDS ORDERED: albuterol 2.5 MG/3 ML nebule NEB PRN (04:05)
[2018-06-28] MEDS ORDERED: FLUoxetine 20mg capsule PO SCH (08:00)
[2018-06-28] MEDS ORDERED: lisinopril 20mg tablet PO SCH (08:00)
[2018-06-28] MEDS ORDERED: pantoprazole 40mg Tablet.DR PO SCH (08:00)
[2018-06-28] MEDS ORDERED: aspirin 81mg tablet.DR PO SCH (08:00)
[2018-06-28] MEDS ORDERED: carVEDilol 12.5mg tablet PO SCH (08:00)
[2018-06-28] MEDS ORDERED: clonazePAM 0.5mg tablet PO SCH (08:00)
[2018-06-28] MEDS ORDERED: OLANZapine 2.5MG tablet PO SCH (21:00)
== END 2018-06-27 22:10 | disposition home or self-care (01) ==
LOC: ER 02:47
DX: F29 Unspecified psychosis not due to a substance or known physiological condition (principal); I25.10 Atherosclerotic heart disease of native coronary artery without angina pectoris; I10 Essential (primary) hypertension; K21.9 Gastro-esophageal reflux disease without esophagitis; F31.9 Bipolar disorder, unspecified; F41.9 Anxiety disorder, unspecified; F03.90 Unspecified dementia, unspecified severity, without behavioral disturbance, psychotic disturbance, mood disturbance, and anxiety; Z95.1 Presence of aortocoronary bypass graft; Z79.899 Other long term (current) drug therapy; Z79.82 Long term (current) use of aspirin
CPT/HCPCS: 36415; 71045; 80053; 80305; 80320; 81003; 81025; 82948; 85025; 99284; 99285

== ENCOUNTER 2018-08-27 11:40 | Inpatient (IN) | payer MEDICARE | END 2018-09-01 12:50 | LOC: ER 11:40 → ED HOLD 15:53 → ORTHO 4S 17:25 | DX: I95.1 Orthostatic hypotension (principal); F03.90 Unspecified dementia, unspecified severity, without behavioral disturbance, psychotic disturbance, mood disturbance, and anxiety; I25.10 Atherosclerotic heart disease of native coronary artery without angina pectoris ==

== ENCOUNTER 2018-10-20 14:06 | Inpatient (IN) | payer MEDICARE | END 2018-10-28 14:45 | disposition still patient (30) | LOC: ER 14:06 → ED HOLD 16:02 → SUR 3N 21:20 | DX: E87.0 Hyperosmolality and hypernatremia (principal); E43 Unspecified severe protein-calorie malnutrition; R62.7 Adult failure to thrive; F32.9 Major depressive disorder, single episode, unspecified; I10 Essential (primary) hypertension ==